=== PATIENT | female | born 1970 | race Caucasian/White ===

== ENCOUNTER 2023-06-03 08:45 | Outpatient (REF) | payer BC, SELFPAY ==
--- NOTE | ~2023-06-03 | US_ITS ---
EXAMINATION: ULTRASOUND RENAL WITH DOPPLER CLINICAL INFORMATION: Renal artery stent COMPARISON: None. TECHNIQUE: Real-time grayscale, color Doppler, and duplex Doppler evaluation of the kidneys and renal vasculature was performed. FINDINGS: RENAL MEASUREMENTS: Right: 8.6 x 4.5 x 5.0 cm (Sag x AP x TV) Left: 10.2 x 5.3 x 5.9 cm (Sag x AP x TV) The renal parenchyma appears normal. No hydronephrosis or nephrolithiasis. DOPPLER INTERROGATION: Aorta: 83 cm/sec RIGHT: Main Renal Artery: Proximal: 134 cm/sec Mid: 117 cm/sec Distal: 162 cm/sec Resistive Index: Upper Pole Interlobar: 0.64 Inter Polar Interlobar: 0.61 Lower Pole Interlobar: 0.63 Right renal vein is patent. LEFT: Main Renal Artery: Proximal: 98 cm/sec Mid: 62 cm/sec Distal: 137 cm/sec Resistive Index: Upper Pole Interlobar: 0.62 Inter Polar Interlobar: 0.63 Lower Pole Interlobar: 0.62 Left renal vein is patent. Renal-Aortic Ratio (RAR): Right: 1.9 Left: 1.6 US/US renal doppler IMPRESSION: 1. No sonographic evidence of renal artery stenosis. 2. No nephrolithiasis or hydronephrosis.
--- NOTE | ~2023-06-03 | US_ITS ---
EXAMINATION: ULTRASOUND RENAL WITH DOPPLER CLINICAL INFORMATION: Renal artery stent COMPARISON: None. TECHNIQUE: Real-time grayscale, color Doppler, and duplex Doppler evaluation of the kidneys and renal vasculature was performed. FINDINGS: RENAL MEASUREMENTS: Right: 8.6 x 4.5 x 5.0 cm (Sag x AP x TV) Left: 10.2 x 5.3 x 5.9 cm (Sag x AP x TV) The renal parenchyma appears normal. No hydronephrosis or nephrolithiasis. DOPPLER INTERROGATION: Aorta: 83 cm/sec RIGHT: Main Renal Artery: Proximal: 134 cm/sec Mid: 117 cm/sec Distal: 162 cm/sec Resistive Index: Upper Pole Interlobar: 0.64 Inter Polar Interlobar: 0.61 Lower Pole Interlobar: 0.63 Right renal vein is patent. LEFT: Main Renal Artery: Proximal: 98 cm/sec Mid: 62 cm/sec Distal: 137 cm/sec Resistive Index: Upper Pole Interlobar: 0.62 Inter Polar Interlobar: 0.63 Lower Pole Interlobar: 0.62 Left renal vein is patent. Renal-Aortic Ratio (RAR): Right: 1.9 Left: 1.6 US/US renal BI IMPRESSION: 1. No sonographic evidence of renal artery stenosis. 2. No nephrolithiasis or hydronephrosis.
== END 2023-06-03 08:46 | disposition home or self-care (01) ==
LOC: HO.US 08:45
PROVIDERS: PCP Internal Medicine; Visit Provider Radiology Vascular & Interventional Radiology
DX: R10.2 Pelvic and perineal pain (principal); Z95.828 Presence of other vascular implants and grafts; T82.856D Stenosis of peripheral vascular stent, subsequent encounter
CPT/HCPCS: 76775; 93975